=== PATIENT | female | born 1980 | race Caucasian/White ===

== ENCOUNTER 2016-05-10 06:52 | Inpatient (IN) | payer OTHER ==
[~2016-05-10] VITALS: Ht 162.6 cm; Wt 56.7 kg
[~2016-05-10 06:52] MED LIST: MULT1TAB73 PO; ONDA4TAB5 PO; PANT40TA2 PO
[2016-05-10] MEDS ORDERED: FAMOTIDINE/PF INJ 20 MG/2 ML VIAL IV ONE ×2 (07:13→07:30)
[2016-05-10] MEDS ORDERED: METOCLOPRAMIDE HCL 10 MG/2 ML VIAL ONE (07:13)
[2016-05-10] MEDS ORDERED: IV SET PRIMARY PUMP SET 1 EA INFUS.SET MC ONE ×3 (07:13→15:46)
[2016-05-10] MEDS ORDERED: IV NS 0.9% 1,000 ML ONE ×2 (07:13→10:07)
[2016-05-10] MEDS ORDERED: METOCLOPRAMIDE HCL 10 MG/2 ML VIAL IV ONE (07:30)
[2016-05-10] MEDS ORDERED: IV NS 0.9% 1,000 ML BAG IV ONE ×2 (07:30→10:00)
[2016-05-10 07:37] LABS: BASOPHILS % (AUTO) 0.7 % (0.0-2.0); DIFF TOTAL % 100 %; HEMATOCRIT 40 % (33-45); HEMOGLOBIN 13.7 g/dL (11.5-14.8); LYMPHOCYTES # (AUTO) 0.6 /CMM (0.8-4.8); LYMPHOCYTES % (AUTO) 12.7 % (20.0-44.0); MEAN CORPUSCULAR HEMOGLOBIN 34 PG (26.0-33.0); MEAN CORPUSCULAR HGB CONC 34 g/dl (31.0-36.0); MEAN CORPUSCULAR VOLUME 99 fL (82-100); MONOCYTES # (AUTO) 0.8 /CMM (0.1-1.30); MONOCYTES % (AUTO) 16.9 % (2.0-12.0); NEUTROPHILS # (AUTO) 3.4 /CMM (1.8-8.9); NEUTROPHILS % (AUTO) 69.7 % (43.0-81.0); PLATELET COUNT (AUTO) 92 /CMM (150-450); RED BLOOD CELL COUNT(AUTO) 4.07 MIL/uL (4.0-5.2); WHITE BLOOD COUNT (AUTO) 4.9 K/uL (4.3-11.0)
[2016-05-10 07:57] LABS: ALBUMIN 4.3 g/dL (3.4-5.0); BILIRUBIN,DIRECT 2.8 mg/dL (0.0-0.2); BILIRUBIN,TOTAL 4.3 mg/dL (0.2-1.0); CALCIUM, SERUM 9.1 mg/dL (8.5-10.1); CREATININE 1.8 mg/dL (0.6-1.3); INDIRECT BILIRUBIN 1.5 mg/dL (0.0-1.1); POTASSIUM 2.9 mmol/L (3.5-5.1); TOTAL PROTEIN, SERUM 8.9 g/dL (6.4-8.2)
[2016-05-10] MEDS ORDERED: LORAZEPAM INJ 2 MG/ML VIAL IV ONE (08:00)
[2016-05-10 08:11] LABS: ANISOCYTOSIS 1+; BAND % (MANUAL) 2 % (0.0-5.0); LYMPHOCYTES % (MANUAL) 11 % (16-48); PLATELET ESTIMATE DECREASED
[2016-05-10] MEDS ORDERED: LORAZEPAM INJ 2 MG/ML VIAL ONE (08:14)
[2016-05-10] MEDS ORDERED: POTASSIUM CHLORIDE 20 MEQ TAB.PRT.SR PO ONE (09:00)
[2016-05-10] MEDS ORDERED: POTASSIUM CHLORIDE 20 MEQ POWDER PACKET PO ONE (09:00)
[2016-05-10] MEDS ORDERED: Magnesium 1GM/D5W 100ML PREMIX 100 ML IV SCH (09:00)
[2016-05-10] MEDS ORDERED: Magnesium 1GM/D5W 100ML PREMIX 100 ML IV ONE (09:01)
[2016-05-10] MEDS ORDERED: MULTIVITAMINS,THERAPEUTIC 1 UDTAB TABLET PO SCH (10:30)
[2016-05-10 12:15] VITALS: BP 91/68
[2016-05-10] MEDS ORDERED: HYDROCODONE/APAP 5/325MG 1 EACH TABLET PO PRN (14:00)
[2016-05-10] MEDS ORDERED: LORAZEPAM INJ 2 MG/ML VIAL IV PRN (14:00)
[2016-05-10] MEDS ORDERED: MVI-12 10ML IV ONE (14:00)
[2016-05-10] MEDS ORDERED: ACETAMINOPHEN 325 MG TABLET PO PRN (14:00)
[2016-05-10] MEDS ORDERED: Z GUARD REMEDY 2 OZ OINT TP PRN (14:00)
[2016-05-10] MEDS ORDERED: MAGNESIUM HYDROXIDE 30 ML UDC PO PRN (14:00)
[2016-05-10] MEDS ORDERED: MAG HYDROX/AL HYDROX/SIMETH 30 ML UDC PO PRN (14:00)
[2016-05-10] MEDS ORDERED: ZOLPIDEM TARTRATE 5 MG TABLET PO PRN (14:00)
[2016-05-10] MEDS ORDERED: MVI ADULT 10ML VIAL = 1AMP 10 ML in IV NS 0.9% 1,000 ML IV ONE (15:00)
[2016-05-10] MEDS ORDERED: SECONDARY IV SET 1 EA INFUS.SET MC ONE (15:47)
[2016-05-10] MEDS: Folic acid 1 MG in IV D5W 50 ML IV SCH (15:51)
[2016-05-10] MEDS: Thiamine 100 MG in IV D5W 50 ML IV SCH (16:18)
[2016-05-10 20:00] VITALS: BP 89/56
[2016-05-10 22:00] VITALS: BP 89/56
[2016-05-10] MEDS: ONDANSETRON HCL/PF 4 MG/2 ML VIAL IVP PRN (23:55)
[2016-05-11] VITALS (7 sets, daily range): BP systolic 101–146; BP diastolic 69–83
[2016-05-11 06:46] LABS: BASOPHILS % (AUTO) 0.1 % (0.0-2.0); DIFF TOTAL % 100 %; EOSINOPHILS % (AUTO) 0.3 % (0.0-6.0); HEMATOCRIT 34 % (33-45); HEMOGLOBIN 11.8 g/dL (11.5-14.8); LYMPHOCYTES # (AUTO) 0.9 /CMM (0.8-4.8); LYMPHOCYTES % (AUTO) 24.7 % (20.0-44.0); MEAN CORPUSCULAR HEMOGLOBIN 35 PG (26.0-33.0); MEAN CORPUSCULAR HGB CONC 35 g/dl (31.0-36.0); MEAN CORPUSCULAR VOLUME 99 fL (82-100); MONOCYTES # (AUTO) 0.4 /CMM (0.1-1.30); MONOCYTES % (AUTO) 12.4 % (2.0-12.0); NEUTROPHILS # (AUTO) 2.2 /CMM (1.8-8.9); NEUTROPHILS % (AUTO) 62.5 % (43.0-81.0); PLATELET COUNT (AUTO) 66 /CMM (150-450); RED BLOOD CELL COUNT(AUTO) 3.38 MIL/uL (4.0-5.2); WHITE BLOOD COUNT (AUTO) 3.5 K/uL (4.3-11.0)
[2016-05-11 06:52] LABS: KETONES,URINE 1+ (NEGATIVE); LEUKOCYTE ESTERASE ,URINE NEGATIVE (NEGATIVE)
[2016-05-11] MEDS: IV NS 0.9% 1,000 ML IV PRN ×2 (06:54→19:55)
[2016-05-11 07:08] LABS: ADD UA MICROSCOPIC YES
[2016-05-11 07:17] LABS: CALCIUM, SERUM 8.2 mg/dL (8.5-10.1); CREATININE 1.1 mg/dL (0.6-1.3); PHOSPHORUS 1.4 mg/dL (2.5-4.9); POTASSIUM 2.9 mmol/L (3.5-5.1)
[2016-05-11 08:13] LABS: ADD URINE CULTURE NO; MUCUS,URINE Rare /LPF (None Seen); RBC,URINE 0-2 /HPF (0-2); WBC,URINE 0-2 /HPF (0-3)
[2016-05-11 08:37] LABS: BAND % (MANUAL) 1 % (0.0-5.0); EOSINOPHILS % (MANUAL) 1 % (0-4); LYMPHOCYTES % (MANUAL) 37 % (16-48); PLATELET ESTIMATE DECREASED
[2016-05-11] MEDS ORDERED: IV NS 0.9% 1,000 ML BAG IV SCH (09:00)
[2016-05-11] MEDS: PANTOPRAZOLE 40 MG TABLET.DR PO SCH (09:02)
[2016-05-11] MEDS ORDERED: IV SET PRIMARY PUMP SET 1 EA INFUS.SET MC ONE (10:14)
[2016-05-11] MEDS: POTASSIUM CL. PREMIX PERIPHER. 50 ML IV SCH ×6 (10:17→16:06)
[2016-05-11] MEDS: ONDANSETRON HCL/PF 4 MG/2 ML VIAL IVP PRN ×2 (11:42→17:24)
[2016-05-11] MEDS: Thiamine 100 MG in IV D5W 50 ML IV SCH (16:10)
[2016-05-11] MEDS ORDERED: SECONDARY IV SET 1 EA INFUS.SET MC ONE (16:16)
[2016-05-11] MEDS: Folic acid 1 MG in IV D5W 50 ML IV SCH (16:49)
[2016-05-11] MEDS: Potassium Phosphate meq 11 MEQ in IV D5W 100 ML IV SCH ×2 (17:24→19:46)
[2016-05-12] VITALS (7 sets, daily range): BP systolic 101–151; BP diastolic 51–86
[2016-05-12 06:58] LABS: BASOPHILS % (AUTO) 0.2 % (0.0-2.0); DIFF TOTAL % 100 %; HEMATOCRIT 33 % (33-45); HEMOGLOBIN 11.3 g/dL (11.5-14.8); LYMPHOCYTES # (AUTO) 0.7 /CMM (0.8-4.8); LYMPHOCYTES % (AUTO) 24.5 % (20.0-44.0); MEAN CORPUSCULAR HEMOGLOBIN 34 PG (26.0-33.0); MEAN CORPUSCULAR HGB CONC 35 g/dl (31.0-36.0); MEAN CORPUSCULAR VOLUME 100 fL (82-100); MONOCYTES # (AUTO) 0.5 /CMM (0.1-1.30); MONOCYTES % (AUTO) 16.3 % (2.0-12.0); NEUTROPHILS # (AUTO) 1.7 /CMM (1.8-8.9); PLATELET COUNT (AUTO) 68 /CMM (150-450); RED BLOOD CELL COUNT(AUTO) 3.29 MIL/uL (4.0-5.2); WHITE BLOOD COUNT (AUTO) 2.9 K/uL (4.3-11.0)
[2016-05-12 07:17] LABS: CALCIUM, SERUM 8.8 mg/dL (8.5-10.1); PHOSPHORUS 1.3 mg/dL (2.5-4.9); POTASSIUM 3.3 mmol/L (3.5-5.1)
[2016-05-12] MEDS: ONDANSETRON HCL/PF 4 MG/2 ML VIAL IVP PRN ×2 (08:48→14:37)
[2016-05-12] MEDS: IV NS 0.9% 1,000 ML IV PRN (08:49)
[2016-05-12] MEDS: PANTOPRAZOLE 40 MG TABLET.DR PO SCH (08:49)
[2016-05-12 09:46] LABS: LYMPHOCYTES % (MANUAL) 26 % (16-48); PLATELET ESTIMATE DECREASED
[2016-05-12 09:47] LABS: ANISOCYTOSIS 1+
[2016-05-12] MEDS ORDERED: POTASSIUM CHLORIDE 20 MEQ TAB.PRT.SR PO SCH (11:30)
[2016-05-12] MEDS ORDERED: K PHOS NEUTRAL 250 MG TABLET PO ONE (12:00)
[2016-05-12] MEDS: THIAMINE HCL 100 MG TABLET PO SCH (13:10)
[2016-05-12] MEDS: FOLIC ACID 1 MG TABLET PO SCH (13:10)
[2016-05-12] MEDS: Magnesium 1GM/D5W 100ML PREMIX 100 ML IV SCH ×2 (13:10→14:37)
[2016-05-13] VITALS: BP 127/88
[2016-05-13 04:00] VITALS: BP_SYST 121; BP_SYST 126; BP_DIAS 67; BP_DIAS 87
[2016-05-13 06:48] LABS: BASOPHILS % (AUTO) 0.3 % (0.0-2.0); DIFF TOTAL % 100 %; EOSINOPHILS % (AUTO) 1.3 % (0.0-6.0); HEMATOCRIT 34 % (33-45); HEMOGLOBIN 11.7 g/dL (11.5-14.8); LYMPHOCYTES # (AUTO) 0.7 /CMM (0.8-4.8); LYMPHOCYTES % (AUTO) 22.6 % (20.0-44.0); MEAN CORPUSCULAR HEMOGLOBIN 34 PG (26.0-33.0); MEAN CORPUSCULAR HGB CONC 34 g/dl (31.0-36.0); MEAN CORPUSCULAR VOLUME 100 fL (82-100); MONOCYTES # (AUTO) 0.7 /CMM (0.1-1.30); MONOCYTES % (AUTO) 21.9 % (2.0-12.0); NEUTROPHILS # (AUTO) 1.8 /CMM (1.8-8.9); NEUTROPHILS % (AUTO) 53.9 % (43.0-81.0); PLATELET COUNT (AUTO) 84 /CMM (150-450); RED BLOOD CELL COUNT(AUTO) 3.41 MIL/uL (4.0-5.2); WHITE BLOOD COUNT (AUTO) 3.3 K/uL (4.3-11.0)
[2016-05-13 07:03] LABS: CREATININE 0.9 mg/dL (0.6-1.3); POTASSIUM 3.2 mmol/L (3.5-5.1)
[2016-05-13 08:00] VITALS: BP_SYST 125; BP_SYST 128; BP_DIAS 87
[2016-05-13] MEDS: THIAMINE HCL 100 MG TABLET PO SCH (08:44)
[2016-05-13] MEDS: FOLIC ACID 1 MG TABLET PO SCH (08:44)
[2016-05-13] MEDS: PANTOPRAZOLE 40 MG TABLET.DR PO SCH (08:44)
[2016-05-13] MEDS ORDERED: POTASSIUM PHOSPHATE MM 15 MMOL in IV D5W 250 ML IV SCH (11:00)
[2016-05-13] MEDS ORDERED: SECONDARY IV SET 1 EA INFUS.SET MC ONE (11:23)
[2016-05-13] MEDS: POTASSIUM PHOSPHATE MM 7.5 MMOL in IV D5W 100 ML IV SCH ×2 (11:34→14:57)
[2016-05-13] MEDS: ONDANSETRON HCL/PF 4 MG/2 ML VIAL IVP PRN ×2 (11:35→17:26)
[2016-05-13 11:56] LABS: EOSINOPHILS % (MANUAL) 1 % (0-4); LYMPHOCYTES % (MANUAL) 23 % (16-48); PLATELET ESTIMATE DECREASED
[2016-05-13 17:02] VITALS: BP 111/84
[2016-05-13 20:00] VITALS: BP 120/81
== END 2016-05-13 22:05 | disposition home or self-care (01) | DRG 775 ==
LOC: ER 06:58 → TELE 11:13 → MED 05-13 08:31
PROVIDERS: ADMIT Family Medicine; ATTEND Family Medicine
DX: F10.239 Alcohol dependence with withdrawal, unspecified (principal); N17.0 Acute kidney failure with tubular necrosis; E87.3 Alkalosis; K76.0 Fatty (change of) liver, not elsewhere classified; E83.39 Other disorders of phosphorus metabolism; K80.20 Calculus of gallbladder without cholecystitis without obstruction; E87.1 Hypo-osmolality and hyponatremia; E87.6 Hypokalemia; E83.42 Hypomagnesemia; R73.9 Hyperglycemia, unspecified; R74.8 Abnormal levels of other serum enzymes
CPT/HCPCS: 36415; 71010-TC; 80048-TC; 80061-TC; 80076-TC; 81000-TC; 83690-TC; 83735-TC; 84100-TC; 84703-TC; 85025-TC; 87081-TC; A4606; G0480; J2060; J2405; J2765; J3411; J3475; J3480; J3490; J7030; J7060; Z7610

== ENCOUNTER 2017-03-18 09:20 | Inpatient (IN) | payer OTHER ==
[2017-03-18] VITALS (14 sets, daily range): BP systolic 105–131; BP diastolic 71–93
[~2017-03-18] VITALS: Ht 160 cm; Wt 49.9 kg
[2017-03-18] MEDS ORDERED: LORAZEPAM INJ 2 MG/ML VIAL IVP ONE (09:30)
[2017-03-18] MEDS ORDERED: IV NS 0.9% 1,000 ML BAG IV ONE ×2 (09:30→14:30)
--- NOTE | 2017-03-18 09:30 | NUR ---
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 ALCOHOL CONSUMPTION LAST NIGHT. C/O HEADACHE. A/OX 4 CURRENTLY. BREATHING EVEN AND UNLABORED, BUT SHAKINESS IN BUE. NO SOB. PATIENT TACHYCARDIC, SEIZURE PRECAUTIONS IN PLACE. MD AT BEDSIDE FOR EVAL.
--- NOTE | 2017-03-18 09:39 | NUR ---
NEW IV STARTED ON RIGHT HAND, 20 G.
[2017-03-18] MEDS ORDERED: LORAZEPAM INJ 2 MG/ML VIAL ONE (09:40)
--- NOTE | 2017-03-18 09:49 | NUR ---
ATIVAN ADMINISTERED PER MD ORDERS.
[2017-03-18 10:07] LABS: BASOPHILS % (AUTO) 0.2 % (0.0-2.0); HEMATOCRIT 40 % (33-45); HEMOGLOBIN 13.2 g/dL (11.5-14.8); LYMPHOCYTES # (AUTO) 0.4 /CMM (0.8-4.8); LYMPHOCYTES % (AUTO) 3.1 % (20.0-44.0); MEAN CORPUSCULAR HEMOGLOBIN 32 PG (26.0-33.0); MEAN CORPUSCULAR HGB CONC 33 g/dl (31.0-36.0); MEAN CORPUSCULAR VOLUME 97 fL (82-100); MONOCYTES # (AUTO) 0.7 /CMM (0.1-1.30); MONOCYTES % (AUTO) 4.9 % (2.0-12.0); NEUTROPHILS # (AUTO) 13.1 /CMM (1.8-8.9); NEUTROPHILS % (AUTO) 91.8 % (43.0-81.0); PLATELET COUNT (AUTO) 102 /CMM (150-450); RDW COEFFICIENT OF VARIATION 13.6 (11.5-15.0); RED BLOOD CELL COUNT(AUTO) 4.09 MIL/uL (4.0-5.2); WHITE BLOOD COUNT (AUTO) 14.2 K/uL (4.3-11.0)
[2017-03-18 10:26] LABS: ALBUMIN 4.6 g/dL (3.4-5.0); BILIRUBIN,DIRECT 0.4 mg/dL (0.0-0.2); BILIRUBIN,TOTAL 0.8 mg/dL (0.2-1.0); CALCIUM, SERUM 8.7 mg/dL (8.5-10.1); CREATININE 2.4 mg/dL (0.6-1.3); POTASSIUM 4.9 mmol/L (3.5-5.1); TOTAL PROTEIN, SERUM 9.7 g/dL (6.4-8.2)
[2017-03-18 10:36] LABS: SALICYLATE 2.6 mg/dL (2.8-20.0)
--- NOTE | 2017-03-18 10:44 | NUR ---
PAGED DR LUO
--- NOTE | 2017-03-18 11:38 | NUR ---
REPORT GIVEN TO RAIN RENEE FOR ALISSA UPON ADMISSION.
--- NOTE | 2017-03-18 11:48 | NUR ---
UPDATED BED ICU 256
[2017-03-18] MEDS ORDERED: ONDANSETRON HCL/PF 4 MG/2 ML VIAL ONE (12:10)
[2017-03-18] MEDS ORDERED: ONDANSETRON HCL/PF 4 MG/2 ML VIAL IV PRN (12:30)
[2017-03-18] MEDS ORDERED: LORAZEPAM INJ 2 MG/ML VIAL IVP PRN (13:00)
[2017-03-18] MEDS ORDERED: IV D5/ 0.9% NACL 1,000 ML IV PRN (13:00)
[2017-03-18] MEDS ORDERED: ACETAMINOPHEN 325 MG TABLET PO PRN (13:00)
--- NOTE | 2017-03-18 13:00 | NUR ---
RN INITIAL NOTES RECEIVED PT AWAKE, A/OX4. ON ROOM AIR. NO RESPIRATORY DISTRESS NOTED. NO SOB NOTED. DENIES ANY PAIN. IV LINES IN PLACE. PT CONNECTED TO MONITOR. ORIENTED TO ROOM AND USE OF CALL LIGHT. BODY ASSESSMENT DONE, SKIN INTACT. PLACED ON SEIZURE PRECAUTION. CALLED DR. LUO FOR ADMISSION ORDERS. PT COMFORTABLE. WILL CONTINUE TO MONITOR.
--- NOTE | 2017-03-18 13:01 | NUR ---
PATIENT TRANSPORTED TO ICU 256 VIA ACLS PROTOCOL. RNRAIN TO PROVIDE ALISSA.
--- NOTE | 2017-03-18 13:30 | NUR ---
RN NOTES SEEN AND EXAMINED BY DR. KAYLEY ARGUETA. AWARE OF CURRENT LAB VALUES. MD DISCUSSED PLAN OF CARE WITH PT, VERBALIZED UNDERSTANDING. ORDERS NOTED AND CARRIED OUT.
[2017-03-18] MEDS: LORAZEPAM INJ 2 MG/ML VIAL IV PRN ×2 (13:39→19:50)
[2017-03-18] MEDS: PANTOPRAZOLE 40 MG TABLET.DR PO SCH (13:39)
[2017-03-18] MEDS: IV NS 0.9% 1,000 ML IV PRN ×2 (13:46→15:21)
--- NOTE | 2017-03-18 13:58 | NUR ---
RN NOTES SERUM PLASMA OSMOLALITY 330. MD ORDERED NS 1L BOLUS. NOTED AND CARRIED OUT. WILL MONITOR
[2017-03-18] MEDS: Folic acid 1 MG in IV D5W 50 ML IV SCH (14:52)
[2017-03-18] MEDS: Thiamine 100 MG in IV D5W 50 ML IV SCH (15:21)
--- NOTE | 2017-03-18 18:36 | NUR ---
RN CLOSING NOTES PT REMAINS STABLE. NO SIGNIFICANT CHANGE NOTED. NO SEIZURE NOTED. SIDERAILS PADDED. IV LINES IN PLACE. TOLERATING IVF WELL. PT COMFORTABLE. CLEAN AND DRY. CALL LIGHT WITHIN REACH. WILL ENDORSE FOR CONTINUITY OF CARE.
--- NOTE | 2017-03-18 19:30 | NUR ---
GLUER MACHINE SETUP OPERATOR INITIAL NOTE PT IN BED WITH EPISODES OF SHAKING. A/O X3 WITH EPISODES OF CONFUSION BUT ABLE TO VERBALIZE NEEDS. ON ROOM AIR AND SATURATING 100%. BREATHING REGULAR, EVEN AND UNLABORED. TELE- SINUS TACH 110. SEIZURE PRECAUTIONS OBSERVED WITH CLOSE MONITORING. IV CLEAN, DRY, PATENT WITH FLUIDS INFUSING WELL. CALL LIGHT WITHIN REACH. WILL CONTINUE TO MONITOR.
--- NOTE | 2017-03-18 20:57 | NUR ---
RN:ICU: PT TRANSPORTED TO CT HEAD PER NEUROLOGIST ORDERS WITH ACLS PRECAUTIONS. PT EDUCATED REGARDING POC. PT EARRINGS REMOVED IT CAUSED ARTIFACT DURING CT. 4 EARRINGS REMOVED EACH WITH ONE WHITE STONE AND VILLATORO METAL. EARRINGS PLACED IN SAFE WITH TITUS RENEE WITNESS.
[2017-03-19] VITALS (15 sets, daily range): BP systolic 100–131; BP diastolic 66–95
[2017-03-19] MEDS: IV NS 0.9% 1,000 ML IV PRN ×2 (00:24→08:42)
[2017-03-19] MEDS: LORAZEPAM INJ 2 MG/ML VIAL IV PRN ×5 (00:24→20:48)
[2017-03-19] MEDS: ONDANSETRON HCL/PF 4 MG/2 ML VIAL IV PRN ×2 (02:38→21:28)
[2017-03-19 05:32] LABS: BASOPHILS % (AUTO) 0.2 % (0.0-2.0); HEMATOCRIT 30 % (33-45); LYMPHOCYTES % (AUTO) 20.6 % (20.0-44.0); MEAN CORPUSCULAR HEMOGLOBIN 32 PG (26.0-33.0); MEAN CORPUSCULAR HGB CONC 34 g/dl (31.0-36.0); MEAN CORPUSCULAR VOLUME 95 fL (82-100); MONOCYTES # (AUTO) 0.5 /CMM (0.1-1.30); MONOCYTES % (AUTO) 11.6 % (2.0-12.0); NEUTROPHILS # (AUTO) 3.1 /CMM (1.8-8.9); NEUTROPHILS % (AUTO) 67.6 % (43.0-81.0); PLATELET COUNT (AUTO) 58 /CMM (150-450); RDW COEFFICIENT OF VARIATION 13.9 (11.5-15.0); RED BLOOD CELL COUNT(AUTO) 3.11 MIL/uL (4.0-5.2); WHITE BLOOD COUNT (AUTO) 4.6 K/uL (4.3-11.0)
[2017-03-19 05:35] LABS: APPEARANCE,URINE CLEAR (CLEAR); BILIRUBIN,URINE 1+ (NEGATIVE); BLOOD, URINE 1+ Ery/uL (NEGATIVE); COLOR,URINE YELLOW (YELLOW); KETONES,URINE 3+ (NEGATIVE); LEUKOCYTE ESTERASE ,URINE NEGATIVE (NEGATIVE); NITRITE, URINE NEGATIVE (NEGATIVE); PH,URINE 6.5 (5.0-8.0); PROTEIN,URINE 1+ mg/dl (NEGATIVE); UGLUCOSE NEGATIVE (NEGATIVE); UROBILINOGEN,URINE 0.2 EU/dL (0.2)
[2017-03-19 05:39] LABS: CREATINE KINASE, TOTAL 80 U/L (26-192)
[2017-03-19 05:41] LABS: ALANINE AMINOTRANSFERASE 40 U/L (12-78); ALBUMIN 3.7 g/dL (3.4-5.0); ALCOHOL, BLOOD < 3 mg/dL (0-0); ALKALINE PHOSPHATASE 42 U/L (46-116); ASPARTATE AMINOTRANSFERASE 97 U/L (15-37); BILIRUBIN,TOTAL 0.8 mg/dL (0.2-1.0); CALCIUM, SERUM 7.9 mg/dL (8.5-10.1); CARBON DIOXIDE 24 mmol/L (21-32); CHLORIDE 98 mmol/L (98-107); CREATININE 0.9 mg/dL (0.6-1.3); GLUCOSE 90 mg/dL (74-106); MAGNESIUM 1.3 mg/dL (1.8-2.4); POTASSIUM 3.3 mmol/L (3.5-5.1); SODIUM SERUM 139 mmol/L (136-145); TOTAL PROTEIN, SERUM 7.4 g/dL (6.4-8.2); UREA NITROGEN, BLOOD 11 mg/dL (7-18)
[2017-03-19 05:48] LABS: CREATININE, URINE 66.8 MG/DL (30.0-125.0)
[2017-03-19 05:53] LABS: INR 0.99 (0.87-1.13); PROTHROMBIN TIME 10.3 SECS (9.5-12.7)
[2017-03-19 05:54] LABS: BACTERIA,URINE None seen /HPF (None Seen); SQUAMOUS EPITHELIAL CELL,UR Few /HPF (None Seen); WBC,URINE 0-2 /HPF (0-3)
[2017-03-19 06:03] LABS: PHOSPHORUS 0.9 mg/dL (2.5-4.9)
--- NOTE | 2017-03-19 07:05 | NUR ---
RN INITIAL NOTES RECEIVED PT ASLEEP, EASILY AROUSABLE. ON ROOM AIR. NO SOB NOTED. NO SIGNS OF PAIN NOTED. IV LINES IN PLACE. IVF INFUSING. SKIN REMAINS INTACT. PT COMFORTABLE. CALL LIGHT WITHIN REACH. WILL MONITOR.
--- NOTE | 2017-03-19 07:17 | NUR ---
MUCK HAULER CLOSING NOTE PT REMAINED STABLE DURING SHIFT. NO ACUTE DISTRESS NOTED. ALL NEEDS ATTENDED TO PROMPTLY. ASSISTED TO BEDSIDE COMMODE SAFELY. NO SEIZURE ACTIVITY NOTED THROUGHOUT THE SHIFT. SHAKING AND TREMORS NOTED AND ATIVAN ADMINISTERED NEEDED. ALL SAFETY MEASURES IN PLACE. CALL LIGHT WITHIN REACH. WILL ENDORSE TO NEXT SHIFT FOR CONTINUITY OF CARE.
[2017-03-19] MEDS: PANTOPRAZOLE 40 MG TABLET.DR PO SCH (08:27)
[2017-03-19] MEDS ORDERED: POTASSIUM PHOSPHATE MM 15 MMOL in IV D5W 250 ML IV SCH (10:30)
[2017-03-19] MEDS: Magnesium 1GM/D5W 100ML PREMIX 100 ML IV SCH ×4 (10:39→14:24)
--- NOTE | 2017-03-19 10:50 | NUR ---
RN NOTES SEEN AND EXAMINED BY DR. TALBOT. AWARE OF LAB VALUES: WBC 4.6, HGB 10, HCT 30, PLATELET 58. NO SIGNS OF BLEEDING NOTED. SODIUM 139, POTASSIUM 3.3, MAGNESIUM 1.3, PHOSPHORUS 0.9. REPLACEMENT ORDERED. LABS IN AM. AWAITING FOR EEG. WILL MONITOR
[2017-03-19 10:57] LABS: EOSINOPHIL,URINE Rare
[2017-03-19] MEDS ORDERED: POTASSIUM CHLORIDE 20 MEQ TAB.PRT.SR PO ONE (11:30)
[2017-03-19 11:49] LABS: EOSINOPHILS % (MANUAL) 1 % (0-4); LYMPHOCYTES % (MANUAL) 25 % (16-48); MONOCYTES % (MANUAL) 9 % (0-11.0); NEUTROPHILS % (MANUAL) 65 (42-76)
--- NOTE | 2017-03-19 11:55 | NUR ---
RN NOTES PT TRANSFERRED TO ROOM 112-1. PT AWAKE, A/OX3. NO RESPIRATORY DISTRESS NOTED. NO SOB NOTED. DENIES ANY PAIN. IV LINES IN PLACE. IVF INFUSING. BEDSIDE REPORT GIVEN TO DALE RENEE. ALL PERTINENT INFO GIVEN. TOOK OVER PT'S CARE.
--- NOTE | 2017-03-19 12:00 | NUR ---
REPORT RECEIVED FROM ENRIQUE RENEE ICU. PT TRANSFERRED VIA GURNEY. V/S STABLE WILL CONTINUE TO MONITOR CLOSELY. ALL SAFETY MEASURES IN PLACE. PT CLEAN AND DRY.
[2017-03-19] MEDS: Folic acid 1 MG in IV D5W 50 ML IV SCH (14:58)
[2017-03-19] MEDS: POTASSIUM PHOSPHATE MM 7.5 MMOL in IV D5W 100 ML IV SCH ×3 (15:56→21:26)
[2017-03-19] MEDS: Thiamine 100 MG in IV D5W 50 ML IV SCH (15:59)
--- NOTE | 2017-03-19 19:00 | NUR ---
No episodes of sz activity on day shift. Patient is light sensitive. Call light with in reach noted with two peripheral access on either hand. Will continue to monitor.
[2017-03-20] VITALS: BP 105/75
--- NOTE | 2017-03-20 00:26 | NUR ---
PATIENT is sleeping in bed comfortably. Denies any pain or discomfort at this point and time. Addendum: 03/20/17 at 0026 by RE MUSTAFA RN Amended: Links added.
[2017-03-20] MEDS ORDERED: LORAZEPAM 1 MG TABLET ONE (01:53)
[2017-03-20] MEDS: LORAZEPAM INJ 2 MG/ML VIAL IV PRN ×5 (02:08→22:18)
--- NOTE | 2017-03-20 03:20 | NUR ---
patient is sleeping comfortably in bed. Call light with in reach.
[2017-03-20 04:00] VITALS: BP 105/75
[2017-03-20 07:17] LABS: BASOPHILS % (AUTO) 0.4 % (0.0-2.0); EOSINOPHILS % (AUTO) 1.1 % (0.0-6.0); HEMATOCRIT 36 % (33-45); HEMOGLOBIN 12.4 g/dL (11.5-14.8); LYMPHOCYTES # (AUTO) 0.9 /CMM (0.8-4.8); LYMPHOCYTES % (AUTO) 29.5 % (20.0-44.0); MEAN CORPUSCULAR HEMOGLOBIN 32 PG (26.0-33.0); MEAN CORPUSCULAR HGB CONC 35 g/dl (31.0-36.0); MEAN CORPUSCULAR VOLUME 94 fL (82-100); MONOCYTES # (AUTO) 0.3 /CMM (0.1-1.30); MONOCYTES % (AUTO) 8.6 % (2.0-12.0); NEUTROPHILS # (AUTO) 1.9 /CMM (1.8-8.9); NEUTROPHILS % (AUTO) 60.4 % (43.0-81.0); PLATELET COUNT (AUTO) 51 /CMM (150-450); RDW COEFFICIENT OF VARIATION 13.4 (11.5-15.0); RED BLOOD CELL COUNT(AUTO) 3.83 MIL/uL (4.0-5.2); WHITE BLOOD COUNT (AUTO) 3.1 K/uL (4.3-11.0)
--- NOTE | 2017-03-20 07:30 | NUR ---
RN MS NOTES PT IN BED, ASLEEP, EASY TO AROUSE, ALERT AND ORIENTED, NO COMPLAINT OF PAIN, RESPIRATIONS NORMAL AND NOT LABORED, IV FLUIDS INFUSING WELL, CALL LIGHT WITHIN REACH, NEEDS ATTENDED.
[2017-03-20 07:55] LABS: CALCIUM, SERUM 9.1 mg/dL (8.5-10.1); CREATININE 0.6 mg/dL (0.6-1.3); MAGNESIUM 2.3 mg/dL (1.8-2.4); PHOSPHORUS 1.8 mg/dL (2.5-4.9)
[2017-03-20 08:00] VITALS: BP 130/94
[2017-03-20] MEDS: PANTOPRAZOLE 40 MG TABLET.DR PO SCH (08:14)
[2017-03-20 09:29] LABS: BAND % (MANUAL) 1 % (0.0-5.0); LYMPHOCYTES % (MANUAL) 37 % (16-48); MONOCYTES % (MANUAL) 8 % (0-11.0); NEUTROPHILS % (MANUAL) 54 (42-76)
[2017-03-20] MEDS: IV NS 0.9% 1,000 ML IV PRN (10:41)
[2017-03-20 11:19] VITALS: BP 130/94
[2017-03-20] MEDS ORDERED: POTASSIUM CHLORIDE 20 MEQ TAB.PRT.SR PO SCH (12:00)
[2017-03-20 12:28] LABS: PTH, INTACT 90 pg/mL (15-65)
[2017-03-20] MEDS ORDERED: POTASSIUM PHOSPHATE MM 15 MMOL in IV D5W 250 ML IV SCH (12:30)
[2017-03-20] MEDS: FOLIC ACID 1 MG TABLET PO SCH (12:33)
--- NOTE | 2017-03-20 13:00 | NUR ---
RN MS NOTES PT IN BED, ASLEEP, EASY TO AROUSE, ALERT AND ORIENTED, ASSISTED TO BATHROOM NEEDED, IV FLUIDS INFUSING WELL, CALL LIGHT WITHIN REACH, NEEDS ATTENDED.
[2017-03-20] MEDS: POTASSIUM PHOSPHATE MM 7.5 MMOL in IV D5W 100 ML IV SCH ×2 (14:34→17:31)
[2017-03-20] MEDS: THIAMINE HCL 100 MG TABLET PO SCH (14:40)
[2017-03-20 16:00] VITALS: BP 107/77
--- NOTE | 2017-03-20 18:41 | NUR ---
RN MS NOTES PT AWAKE, NOT IN PAIN OR DISTRESS, ASSISTED WITH NEEDS, PT SEEN BY DR. HARRINGTON TODAY, ASSISTED WITH BATHROOM NEEDS, ATIVAN GIVEN FOR ANXIETY, VERBALIZED RELIEF, TOLERATING CURRENT DIET WELL.
--- NOTE | 2017-03-20 19:30 | NUR ---
RN NOTES RECEIVED PT. AWAKE ON BED, A/OX4, AMBULATORY DENIES PAIUN, NO SOB, CALL LIGHT WITHIN REACH, SIDERAILS UPX2 CONTINUE TO MONITOR
[2017-03-20 20:00] VITALS: BP 123/88
--- NOTE | 2017-03-20 20:00 | NUR ---
RN NOTES IV GOT INFILTRATED, NEW IV LINE INSERTED ON THE LEFT FOREARM GAUGE 22
--- NOTE | 2017-03-20 22:18 | NUR ---
RN NOTES COMPLAINED OF FEELING ANXIOUS- ATIVAN 1 MG IV GIVEN ORDERED, V/S STABLE
--- NOTE | 2017-03-21 00:44 | NUR ---
RN NOTES PT. WAS MOVED TO ANOTHER ROOM 114-1
[2017-03-21] MEDS: LORAZEPAM INJ 2 MG/ML VIAL IV PRN ×2 (02:14→06:12)
--- NOTE | 2017-03-21 02:18 | NUR ---
RN NOTES COMPLAINED OF FEELING ANXIOUS- ATIVAN 1MG IV GIVEN ORDERED, V/S STABLE
[2017-03-21 04:00] VITALS: BP 119/87
[2017-03-21] MEDS: IV NS 0.9% 1,000 ML IV PRN (06:12)
--- NOTE | 2017-03-21 06:15 | NUR ---
RN NOTES COMPLAINED OF FEELING ANXIOUS- ATIVAN 1MG IV GIVEN ORDERED, V/S STABLE
--- NOTE | 2017-03-21 06:25 | NUR ---
RN NOTES AWAKE,MORNING CARE RENDERED, DENIES PAIN, NO SOB, CALL LIGHT WITHIN REACH, SIDERAILS UPX2 PT. NEEDS ATTENDED
[2017-03-21 07:09] LABS: *SPE A/G RATIO 1.4 (0.7-1.7); *SPE ALPHA-1-GLOBULIN 0.3 g/dL (0.0-0.4); *SPE ALPHA-2-GLOBULIN 0.9 g/dL (0.4-1.0); *SPE BETA GLOBULIN 0.8 g/dL (0.7-1.3); *SPE GLOBULIN, TOTAL 2.9 g/dL (2.2-3.9); *SPE M-SPIKE Not Observed g/dL (Not Observed)
[2017-03-21 07:18] LABS: BASOPHILS % (AUTO) 0.6 % (0.0-2.0); EOSINOPHILS # (AUTO) 0.1 /CMM (0.0-0.7); EOSINOPHILS % (AUTO) 1.7 % (0.0-6.0); HEMATOCRIT 34 % (33-45); HEMOGLOBIN 11.8 g/dL (11.5-14.8); LYMPHOCYTES # (AUTO) 1.1 /CMM (0.8-4.8); LYMPHOCYTES % (AUTO) 36.3 % (20.0-44.0); MEAN CORPUSCULAR HEMOGLOBIN 32 PG (26.0-33.0); MEAN CORPUSCULAR HGB CONC 35 g/dl (31.0-36.0); MEAN CORPUSCULAR VOLUME 94 fL (82-100); MONOCYTES # (AUTO) 0.2 /CMM (0.1-1.30); MONOCYTES % (AUTO) 7.9 % (2.0-12.0); NEUTROPHILS # (AUTO) 1.6 /CMM (1.8-8.9); NEUTROPHILS % (AUTO) 53.5 % (43.0-81.0); PLATELET COUNT (AUTO) 64 /CMM (150-450); RDW COEFFICIENT OF VARIATION 13.3 (11.5-15.0); RED BLOOD CELL COUNT(AUTO) 3.63 MIL/uL (4.0-5.2); WHITE BLOOD COUNT (AUTO) 3.1 K/uL (4.3-11.0)
[2017-03-21 07:29] LABS: CALCIUM, SERUM 9.9 mg/dL (8.5-10.1); CREATININE 0.5 mg/dL (0.6-1.3); POTASSIUM 3.5 mmol/L (3.5-5.1)
--- NOTE | 2017-03-21 07:30 | NUR ---
RN NOTES RECEIVED PT. AWAKE ON BED, A/OX4, ON RA, NOT IN ANY DISTRESS, NO SOB, RESPIRATION UNLABORED, DENIES PAIN, LFA G 22 WITH NS AT 125 ML/HR, INFUSING WELL ,SITE CLEAR, AMBULATORY, CALL LIGHT WITHIN REACH, SIDERAILS UPX2, CONTINUE TO MONITOR
[2017-03-21 08:00] VITALS: BP 106/79
[2017-03-21] MEDS: PANTOPRAZOLE 40 MG TABLET.DR PO SCH (08:12)
[2017-03-21] MEDS: FOLIC ACID 1 MG TABLET PO SCH (08:14)
[2017-03-21] MEDS: THIAMINE HCL 100 MG TABLET PO SCH (08:14)
--- NOTE | 2017-03-21 09:30 | NUR ---
RN NOTES ADMINISTERED DUE MEDS.
[2017-03-21 09:35] LABS: LYMPHOCYTES % (MANUAL) 43 % (16-48); MONOCYTES % (MANUAL) 10 % (0-11.0); NEUTROPHILS % (MANUAL) 47 (42-76)
--- NOTE | 2017-03-21 15:00 | NUR ---
RN NOTES PATIENT DISCHARGED TO HOME TODAY PER MD IN STABLE CONDITION. PROVIDED DC INSTRUCTIONS, MED RECON LIST AND HEALTH TEACHINGS. TO FOLLOW UP WITH PCP IN 1 WEEKS AND WILL MAKE OWN APPOINTMENT, IV ACCESS TO LEFT FA REMOVED, NO BLEEDING DRESSING IN PLACE, ALL BELONGINGS CHECKED AND RETURNED, ALL PAPERWORKS SIGNED. PATIENT TO GO HOME VIA PRIVATE CAR BY ,.
== END 2017-03-21 15:21 | disposition home or self-care (01) | DRG 775 ==
LOC: ER 09:23 → ICU 11:41 → TELE1 03-19 11:40 → MEDSG1 03-19 11:52
PROVIDERS: ADMIT Internal Medicine; ATTEND Internal Medicine
DX: F10.121 Alcohol abuse with intoxication delirium (principal); N17.0 Acute kidney failure with tubular necrosis; G92 Toxic encephalopathy; D69.6 Thrombocytopenia, unspecified; E87.2 Acidosis; E83.42 Hypomagnesemia; E83.39 Other disorders of phosphorus metabolism; E87.6 Hypokalemia; G40.909 Epilepsy, unspecified, not intractable, without status epilepticus; D72.829 Elevated white blood cell count, unspecified; E86.0 Dehydration; K21.9 Gastro-esophageal reflux disease without esophagitis; Y90.4 Blood alcohol level of 80-99 mg/100 ml
CPT/HCPCS: 36415; 70450-TC; 80048-TC; 80053-TC; 80076-TC; 81000-TC; 82550-TC; 82570-TC; 83690-TC; 83735-TC; 83935-TC; 83970; 84100-TC; 84155; 84155-TC; 84165; 84300-TC; 84703-TC; 85025-TC; 85730-TC; 87081-TC; 95819-TC; A4606; G0480; J2060; J2405; J3411; J3475; J3490; J7030; J7060; Z7610